=== PATIENT | male | born 1970 | race Caucasian/White ===

== ENCOUNTER 2021-09-30 20:42 | Emergency (ER) | payer SELFPAY ==
[2021-09-30 21:40] LABS: BUN/CREATININE RATIO 5 (0-10)
== END 2021-10-01 00:08 | disposition home or self-care (01) ==
LOC: ER1 20:42
PROVIDERS: Family Medicine
DX: F10.10 Alcohol abuse, uncomplicated (principal); J45.909 Unspecified asthma, uncomplicated
CPT/HCPCS: 80053; 83735; 99283; G0480